=== PATIENT | male | born 1950 | race Caucasian/White ===

== ENCOUNTER 2017-11-14 18:40 | Observation (INO) | payer MEDICARE, OTHER ==
[2017-11-14] MEDS ORDERED: Ketorolac 60 MG/2 ML SDV IM ONE (18:58)
[2017-11-14] MEDS ORDERED: fentaNYL 100 MCG/2 ML SDV IVPUSH PRN (18:59)
[2017-11-14] MEDS ORDERED: Sodium Chloride 0.9% 1,000 ML IV SCH (19:00)
--- NOTE | 2017-11-14 19:07 | EDM.PDOC ---
ED HPI GENERAL MEDICAL PROBLEM - General Chief Complaint: Abdominal Pain Stated Complaint: abd pain Time Seen by Provider: 11/14/17 18:50 Source of Information: Reports: Patient History Limitations: Reports: No Limitations - History of Present Illness Onset: Sudden Location: Reports: Abdomen Quality: Reports: Sharp Severity: Severe Associated Symptoms: Denies: Fever/Chills, Nausea/Vomiting, Shortness of Breath Abdominal Pain Score (Numeric/FACES): 10 - Related Data Allergies Allergy/AdvReac Type Severity Reaction Status Date / Time Penicillins Allergy Hives Verified 11/14/17 19:28 Home Meds: Home Meds Albuterol Sulfate [Albuterol Sulfate HFA] 8.5 gm IH Q6HR PRN #1 hfa.aer.ad 06/07 [Rx] Simvastatin [Zocor] 10 mg PO DAILY 06/07/14 [History] Aspirin [Ecotrin] 81 mg PO DAILY 04/23/15 [History] Naproxen 500 mg PO BID PRN 04/23/15 [History] Cholecalciferol (Vitamin D3) [Vitamin D3] 2,000 unit PO DAILY 02/12/16 [History] Allopurinol [Zyloprim] 100 mg PO DAILY PRN 11/14/17 [History] Past Medical History Cardiovascular History: Reports: High Cholesterol Musculoskeletal History: Reports: Gout Endocrine/Metabolic History: Reports: Vitamin D Deficiency ED ROS GENERAL - Review of Systems Review Of Systems: See Below Constitutional: Denies: Fever HEENT: Reports: No Symptoms Respiratory: Reports: No Symptoms Cardiovascular: Reports: No Symptoms GI/Abdominal: Reports: Abdominal Pain. Denies: Constipation, Diarrhea : Reports: Flank Pain. Denies: Dysuria Skin: Reports: No Symptoms ED EXAM, GI/ABD - Physical Exam Exam: See Below Exam Limited By: No Limitations General Appearance: Alert, Severe Distress Ears: Normal Canal, Normal TMs Nose: Normal Inspection Throat/Mouth: Normal Inspection, Normal Oropharynx, No Airway Compromise Head: Atraumatic, Normocephalic Neck: Normal Inspection, Supple, Non-Tender, Full Range of Motion Respiratory/Chest: No Respiratory Distress, Lungs Clear, Normal Breath Sounds Cardiovascular: Regular Rate, Rhythm, No Edema GI/Abdominal Exam: Normal Bowel Sounds. No: Distended, Rigid (Right sided flank pain with radiation into the right groin and testicles.) Back Exam: Normal Inspection, CVA Tenderness (R) Extremities: Normal Inspection, Normal Range of Motion, Normal Capillary Refill Neurological: Alert, Oriented Skin Exam: Warm, Dry, Intact Course - Vital Signs Last Recorded V/S: Last Vital Signs Temp 95.4 F 11/14/17 18:41 Pulse 59 L 11/14/17 18:41 Resp 18 11/14/17 18:41 BP 137/84 11/14/17 18:41 Pulse Ox 18 L 11/14/17 18:41 - Orders/Labs/Meds Orders: Active Orders 24 hr Category Date Time Status Abdomen Pelvis wo Cont [CT] Stat Exams 11/14/17 19:18 Taken Ondansetron [Zofran] 8 mg Med 11/14/17 19:19 Active Sodium Chloride 0.9% [Normal Saline] 50 ml IV Q6H Sodium Chloride 0.9% [Normal Saline] 1,000 ml Med 11/14/17 20:24 Active IV ASDIRECTED fentaNYL [Sublimaze] Med 11/14/17 20:32 Active 50 mcg IVPUSH Q2H PRN Medication Orders Fentanyl (Sublimaze) 50 mcg IVPUSH Q2H PRN PRN Reason: Pain Last Admin: 11/14/17 21:56 Dose: 50 mcg Ondansetron HCl 8 mg/ Sodium (Chloride) 54 mls @ 100 mls/hr IV Q6H PRN PRN Reason: Nausea Last Admin: 11/14/17 19:24 Dose: 100 mls/hr Sodium Chloride (Normal Saline) 1,000 mls @ 500 mls/hr IV ASDIRECTED GUILLERMINA Last Admin: 11/14/17 21:53 Dose: 500 mls/hr Labs: Laboratory Tests 11/14/17 11/14/17 11/14/17 Range/Units 19:05 19:05 19:05 WBC 11.2 H (5.0-10.0) 10^3/uL RBC 4.56 (4.50-6.00) 10^6/uL Hgb 13.3 L (14.0-18.0) g/dL Hct 39.1 L (40.0-54.0) % MCV 85.7 (82.0-94.0) fL MCH 29.2 (27.0-32.0) pg MCHC 34.0 (33.0-38.0) g/dL RDW Coeff of Sonali 14.9 (11.0-15.0) % Plt Count 237 (150-400) 10^3/uL Neut % (Auto) 67.2 (35-85) % Lymph % (Auto) 22.8 (10-55) % [place] % (Auto) 8.2 (0-16) % Eos % (Auto) 1.5 (0-5) % Baso % (Auto) 0.3 (0-3) % Neut # (Auto) 7.50 H (1.80-7.00) 10^3/uL Lymph # (Auto) 2.54 (1.00-4.80) 10^3/uL [place] # (Auto) 0.92 H (0.00-0.80) 10^3/uL Eos # (Auto) 0.17 (0.00-0.45) 10^3/uL Baso # (Auto) 0.03 10^3/uL Sodium 141 (136-145) mEq/L Potassium 4.1 (3.5-5.0) mEq/L Chloride 104 (98-106) mEq/L Carbon Dioxide 25 (21-32) mmol/L BUN 14 (7-18) mg/dL Creatinine 1.3 (0.7-1.3) mg/dL Est Cr Clr Drug Dosing 61.35 mL/min Estimated GFR (MDRD) 55 L (>=60) mL/min Glucose 128 H D (75-99) mg/dL Calcium 8.9 (8.4-10.1) mg/dL Total Bilirubin 0.3 (0.0-1.0) mg/dL AST 15 (15-37) U/L ALT 24 (12-78) U/L Alkaline Phosphatase 69 (46-116) U/L C-Reactive Protein 2.3 H (0.2-0.8) mg/dL Total Protein 7.0 (6.4-8.2) g/dL Albumin 4.0 (3.4-5.0) g/dL Urine Color Light yellow (YELLOW) Urine Appearance Clear (CLEAR) Urine pH 5.5 (4.5-8.0) Ur Specific [place] 1.015 (1.003-1.020) Urine Protein Negative (NEGATIVE) mg/dL Urine Glucose (UA) Negative (NEGATIVE) mg/dL Urine Ketones Negative (NEGATIVE) mg/dL Urine Occult Blood Small H (NEGATIVE) Urine Nitrite Negative (NEGATIVE) Urine Bilirubin Negative (NEGATIVE) Urine Urobilinogen 0.2 (0.2-1.0) EU/dL Ur Leukocyte Esterase Negative (NEGATIVE) Urine RBC 0-5 (0-5) /HPF Urine WBC Not seen (0-5) /HPF Meds: Medications Generic Name Dose Route Start Last Admin Trade Name Freq PRN Reason Stop Dose Admin Fentanyl 50 mcg 11/14/17 20:32 11/14/17 21:56 Sublimaze IVPUSH 50 mcg Q2H PRN Administration Pain Ondansetron HCl 8 mg/ Sodium 54 mls @ 100 mls/hr 11/14/17 19:19 11/14/17 19: 24 Chloride IV 100 mls/hr Q6H PRN Administration Nausea Sodium Chloride 1,000 mls @ 500 mls/hr 11/14/17 20:24 11/14/17 21:53 Normal Saline IV 500 mls/hr ASDIRECTED GUILLERMINA Administration Discontinued Medications Generic Name Dose Route Start Last Admin Trade Name Freq PRN Reason Stop Dose Admin Fentanyl 50 mcg 11/14/17 18:59 11/14/17 19:19 Sublimaze IVPUSH 50 mcg Q4H PRN Administration Pain Fentanyl 50 mcg 11/14/17 20:00 11/14/17 20:00 Sublimaze IVPUSH 11/14/17 20:01 50 mcg ONETIME ONE Administration Sodium Chloride 1,000 mls @ 250 mls/hr 11/14/17 19:00 11/14/17 20:27 Normal Saline IV 500 mls/hr ASDIRECTED GUILLERMINA Infusion Ketorolac Tromethamine 60 mg 11/14/17 18:58 11/14/17 19:13 Toradol IM 11/14/17 18:59 60 mg ONETIME ONE Administration - Re-Assessments/Exams Free Text/Narrative Re-Assessment/Exam: 11/14/17 21:[address] Jordan. Has 3.8-4 mm stone in right ureter and smaller stones bilaterally in kidneys. Will continue to push IV fluids and medicate for pain as needed. Will admit observation and possibly discharge in the AM. Will strain urine throughout the night. Pt and son voice understanding of above. Departure - Departure Time of Disposition: 22:15 Disposition: Refer to Observation Condition: Good Clinical Impression: Bilateral kidney stones - Discharge Information *PRESCRIPTION DRUG MONITORING PROGRAM REVIEWED*: Not Applicable *COPY OF PRESCRIPTION DRUG MONITORING REPORT IN PATIENT JOHN: Not Applicable Instructions: Kidney Stones Forms: ED Department Discharge Additional Instructions: Will admit observation to Dr. Chiu's service. with plans to discharge in the AM. - Problem List & Annotations (1) Bilateral kidney stones SNOMED Code(s): 96077643 Code(s): N20.0 - CALCULUS OF KIDNEY Status: Acute Current Visit: Yes - Problem List Review Problem List Initiated/Reviewed/Updated: Yes - My Orders Last 24 Hours: My Active Orders 11/14/17 19:18 Abdomen Pelvis wo Cont [CT] Stat 11/14/17 19:19 Ondansetron [Zofran] 8 mg Sodium Chloride 0.9% [Normal Saline] 50 ml IV Q6H 11/14/17 20:24 Sodium Chloride 0.9% [Normal Saline] 1,000 ml IV ASDIRECTED 11/14/17 20:32 fentaNYL [Sublimaze] 50 mcg IVPUSH Q2H PRN - Assessment/Plan Admission H&P: Please use this note as an admission H&P Last 24 Hours: My Active Orders 11/14/17 19:18 Abdomen Pelvis wo Cont [CT] Stat 11/14/17 19:19 Ondansetron [Zofran] 8 mg Sodium Chloride 0.9% [Normal Saline] 50 ml IV Q6H 11/14/17 20:24 Sodium Chloride 0.9% [Normal Saline] 1,000 ml IV ASDIRECTED 11/14/17 20:32 fentaNYL [Sublimaze] 50 mcg IVPUSH Q2H PRN
[2017-11-14] MEDS: Ondansetron 8 MG in Sodium Chloride 0.9% 50 ML IV PRN (19:24)
[2017-11-14] MEDS ORDERED: fentaNYL 100 MCG/2 ML SDV IVPUSH ONE (20:00)
[2017-11-14] MEDS: Sodium Chloride 0.9% 1,000 ML IV SCH ×2 (21:53→23:57)
[2017-11-14] MEDS: fentaNYL 100 MCG/2 ML SDV IVPUSH PRN (21:56)
[2017-11-14] MEDS ORDERED: Enoxaparin 30 MG/0.3 ML Syringe SUBCUT SCH ×2 (22:26→22:45)
[2017-11-14] MEDS ORDERED: Tamsulosin 0.4 MG Cap.ER PO SCH (22:30)
[2017-11-15] MEDS: Ondansetron 8 MG in Sodium Chloride 0.9% 50 ML IV PRN (01:00)
[2017-11-15] MEDS: fentaNYL 100 MCG/2 ML SDV IVPUSH PRN (01:05)
[2017-11-15] MEDS: Sodium Chloride 0.9% 1,000 ML IV SCH ×3 (02:21→06:42)
--- NOTE | 2017-11-15 07:39 | PCM.DCSUM1 ---
Discharge Summary - Hospital Course HPI Initial Comments: Pt was admitted observation for pain control with right sided flank pain from kidney stones. Has bilateral kidney stones on CT scan. Pain was unable to be controlled in the ER. Was very nauseated and was given Zofran IV which did help the nausea. Brief History: Did require some additional pain meds during the night. Pain currently is 1-2/10 at this time. Nausea has been resolved. Has never had kidney stone in the past. Diagnosis: Stroke: No - Discharge Data Discharge Date: 11/15/17 Discharge Disposition: Home, Self-Care 01 Condition: Good - Discharge Diagnosis/Problem(s) (1) Bilateral kidney stones SNOMED Code(s): 37654331 ICD Code: N20.0 - CALCULUS OF KIDNEY Status: Acute Priority: High Current Visit: Yes - Patient Summary/Data Complications: None Hospital Course: Pt was admitted and was given pain meds during the night with IV fluids. He has urinated and urine was strained but no stone noted at this point. He ranks his pain 1-2/10 and has slept on and off. No further nausea noted. - Patient Instructions Diet: Regular Diet as Tolerated Activity: As Tolerated Driving: May Drive Today - Discharge Plan *PRESCRIPTION DRUG MONITORING PROGRAM REVIEWED*: Not Applicable *COPY OF PRESCRIPTION DRUG MONITORING REPORT IN PATIENT JOHN: Not Applicable Home Medications: Home Meds Albuterol Sulfate [Albuterol Sulfate HFA] 8.5 gm IH Q6HR PRN #1 hfa.aer.ad 06/07 [Rx] Simvastatin [Zocor] 10 mg PO DAILY 06/07/14 [History] Aspirin [Ecotrin] 81 mg PO DAILY 04/23/15 [History] Naproxen 500 mg PO BID PRN 04/23/15 [History] Cholecalciferol (Vitamin D3) [Vitamin D3] 2,000 unit PO DAILY 02/12/16 [History] Allopurinol [Zyloprim] 100 mg PO DAILY PRN 11/14/17 [History] Patient Handouts: Kidney Stones Forms: ED Department Discharge Referrals: Yolanda Raya PA-C [Primary Care Provider] - - Discharge Summary/Plan Comment DC Time >30 min.: Yes Discharge Summary/Plan Comment: Appt with Dr. Irwin as CT shows bilateral kidney stones present Will continue on flomax for the next month tylenol or advil as needed for pain Push fluids 80-100 ml of water daily - General Info Date of Service: 11/15/17 Admission Dx/Problem (Free Text: bilateral kidney stones. Functional Status: Reports: Pain Controlled - Review of Systems General: Reports: No Symptoms HEENT: Reports: No Symptoms Pulmonary: Reports: No Symptoms Cardiovascular: Reports: No Symptoms Gastrointestinal: Reports: Abdominal Pain Genitourinary: Reports: Flank Pain. Denies: Dysuria, Frequency, Burning, Pain Skin: Reports: No Symptoms Neurological: Reports: No Symptoms - Patient Data Vitals - Most Recent: Last Vital Signs Temp 99.7 F 11/15/17 04:00 Pulse 63 11/15/17 04:00 Resp 18 11/15/17 04:00 BP 124/49 L 11/15/17 04:00 Pulse Ox 96 11/15/17 04:00 Weight - Most Recent: 209 lb I&O - Last 24 hours: Intake & Output 11/14/17 11/15/17 11/15/17 22:59 06:59 14:59 Intake Total 263 4350 Output Total 625 Balance 263 3725 Lab Results - Last 24 hrs: Laboratory Results - last 24 hr 11/14/17 11/14/17 11/14/17 Range/Units 19:05 19:05 19:05 WBC 11.2 H (5.0-10.0) 10^3/uL RBC 4.56 (4.50-6.00) 10^6/uL Hgb 13.3 L (14.0-18.0) g/dL Hct 39.1 L (40.0-54.0) % MCV 85.7 (82.0-94.0) fL MCH 29.2 (27.0-32.0) pg MCHC 34.0 (33.0-38.0) g/dL RDW Coeff of Sonali 14.9 (11.0-15.0) % Plt Count 237 (150-400) 10^3/uL Neut % (Auto) 67.2 (35-85) % Lymph % (Auto) 22.8 (10-55) % [place] % (Auto) 8.2 (0-16) % Eos % (Auto) 1.5 (0-5) % Baso % (Auto) 0.3 (0-3) % Neut # (Auto) 7.50 H (1.80-7.00) 10^3/uL Lymph # (Auto) 2.54 (1.00-4.80) 10^3/uL [place] # (Auto) 0.92 H (0.00-0.80) 10^3/uL Eos # (Auto) 0.17 (0.00-0.45) 10^3/uL Baso # (Auto) 0.03 10^3/uL Sodium 141 (136-145) mEq/L Potassium 4.1 (3.5-5.0) mEq/L Chloride 104 (98-106) mEq/L Carbon Dioxide 25 (21-32) mmol/L BUN 14 (7-18) mg/dL Creatinine 1.3 (0.7-1.3) mg/dL Est Cr Clr Drug Dosing 61.35 mL/min Estimated GFR (MDRD) 55 L (>=60) mL/min Glucose 128 H D (75-99) mg/dL Calcium 8.9 (8.4-10.1) mg/dL Total Bilirubin 0.3 (0.0-1.0) mg/dL AST 15 (15-37) U/L ALT 24 (12-78) U/L Alkaline Phosphatase 69 (46-116) U/L C-Reactive Protein 2.3 H (0.2-0.8) mg/dL Total Protein 7.0 (6.4-8.2) g/dL Albumin 4.0 (3.4-5.0) g/dL Urine Color Light yellow (YELLOW) Urine Appearance Clear (CLEAR) Urine pH 5.5 (4.5-8.0) Ur Specific [place] 1.015 (1.003-1.020) Urine Protein Negative (NEGATIVE) mg/dL Urine Glucose (UA) Negative (NEGATIVE) mg/dL Urine Ketones Negative (NEGATIVE) mg/dL Urine Occult Blood Small H (NEGATIVE) Urine Nitrite Negative (NEGATIVE) Urine Bilirubin Negative (NEGATIVE) Urine Urobilinogen 0.2 (0.2-1.0) EU/dL Ur Leukocyte Esterase Negative (NEGATIVE) Urine RBC 0-5 (0-5) /HPF Urine WBC Not seen (0-5) /HPF Med Orders - Current: Current Medications Enoxaparin Sodium (Lovenox) 30 mg SUBCUT BEDTIME GUILLERMINA Last Admin: 11/14/17 22:42 Dose: 30 mg Fentanyl (Sublimaze) 50 mcg IVPUSH Q2H PRN PRN Reason: Pain Last Admin: 11/15/17 01:05 Dose: 50 mcg Ondansetron HCl 8 mg/ Sodium (Chloride) 54 mls @ 100 mls/hr IV Q6H PRN PRN Reason: Nausea Last Admin: 11/15/17 01:00 Dose: 100 mls/hr Sodium Chloride (Normal Saline) 1,000 mls @ 500 mls/hr IV ASDIRECTED [facility] Last Admin: 11/15/17 06:42 Dose: 500 mls/hr Tamsulosin HCl (Flomax) 0.4 mg PO BEDTIME [facility] Last Admin: 11/14/17 22:40 Dose: 0.4 mg Discontinued Medications Fentanyl (Sublimaze) 50 mcg IVPUSH Q4H PRN PRN Reason: Pain Last Admin: 11/14/17 19:19 Dose: 50 mcg Fentanyl (Sublimaze) 50 mcg IVPUSH ONETIME ONE Stop: 11/14/17 20:01 Last Admin: 11/14/17 20:00 Dose: 50 mcg Sodium Chloride (Normal Saline) 1,000 mls @ 250 mls/hr IV ASDIRECTED [facility] Last Infusion: 11/14/17 20:27 Dose: 500 mls/hr Ketorolac Tromethamine (Toradol) 60 mg IM ONETIME ONE Stop: 11/14/17 18:59 Last Admin: 11/14/17 19:13 Dose: 60 mg - Exam General: Reports: Alert, Oriented Lungs: Reports: Clear to Auscultation, Normal Respiratory Effort Cardiovascular: Reports: Regular Rate, Regular Rhythm GI/Abdominal Exam: Normal Bowel Sounds, Soft, Non-Tender, No Organomegaly, Other (No CVA tenderness noted.) Extremities: No Pedal Edema, Normal Capillary Refill Skin: Reports: Warm, Dry, Intact Psy/Mental Status: Reports: Alert, Normal Affect
[2017-11-15 08:24] VITALS: BP 115/61
== END 2017-11-15 08:40 | disposition home or self-care (01) ==
LOC: CC.ED 18:40 → UNDOADMOB 22:00 → CC.ED 22:00 → CC.MS 22:00
PROVIDERS: ADMIT Physician Assistant Medical; ATTEND Family Medicine
DX: N13.2 Hydronephrosis with renal and ureteral calculous obstruction (principal); K76.0 Fatty (change of) liver, not elsewhere classified; E78.00 Pure hypercholesterolemia, unspecified; M10.9 Gout, unspecified; E55.9 Vitamin D deficiency, unspecified; Z79.82 Long term (current) use of aspirin; Z79.899 Other long term (current) drug therapy; Z88.0 Allergy status to penicillin
CPT/HCPCS: 36415; 74176; 80053; 81001; 85025; 86140; 96361; 96365; 96366; 96368; 96372; 96375; 96376; 99285; A9270-GY; J1650; J1885; J2405; J3010; J7030; J7050

== ENCOUNTER → 2018-08-02 | Day surgery (SDC) | payer MEDICARE, OTHER ==
[~2018-08-02] MED LIST: Lactated Ringers 1,000 ML IV SCH; Propofol 200 MG/20 ML SDV IV ONE
[2018-08-02 11:18] VITALS: BP 136/69
--- NOTE | 2018-08-05 09:10 | OR ---
DATE OF OPERATION: 08/02/2018 PREOPERATIVE DIAGNOSIS: FOLLOWUP POLYPS. POSTOPERATIVE DIAGNOSIS: FOLLOWUP POLYPS. SURGEON: Donny Chiu MD PROCEDURE: COLONOSCOPY WITH FORCEPS POLYP REMOVAL X2. 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 COMPLICATIONS: None. SPECIMEN: Rectal polyps x2, both sessile, less than 3 mm. FINDINGS: 1. Full-length colonoscopy. 2. Mild sigmoid diverticulosis. 3. Two small sessile polyps, 3 mm at rectal vault. RECOMMENDATIONS: Followup colonoscopy in 5 years. INDICATIONS: The patient was seen for physical. He was sent for a followup on polyps for repeat colonoscopy. DESCRIPTION OF PROCEDURE: The patient was prepped and draped, placed in the left lateral decubitus position. Lubricated Olympus colonoscope was inserted and easily advanced to the cecum. Direct visualization of the ileocecal valve and appendiceal orifice was accomplished. The bowel prep was adequate. Upon withdrawal of the scope, right transverse and descending colon were all completely benign. The patient does have a few scattered diverticula in the sigmoid colon without inflammatory change. No other worrisome vascular abnormalities, bleeding sites, or signs of colitis were seen. The patient had no polyps or lesions in the sigmoid or rectosigmoid junction. Rectal vault had 2 small sessile polyps, both flat, removed with forceps biopsy x1 each in their entirety. Resolution of bleeding was spontaneous. Retroflexion of the scope in the rectum showed no perianal lesions. Air was suctioned. Scope was removed without complication. FRANCIS/SABINA /[id number]
== END ==
LOC: CC.SDS 08:57
PROVIDERS: ATTEND Family Medicine
DX: Z12.11 Encounter for screening for malignant neoplasm of colon (principal); K62.1 Rectal polyp; K57.30 Diverticulosis of large intestine without perforation or abscess without bleeding; E78.5 Hyperlipidemia, unspecified; I25.10 Atherosclerotic heart disease of native coronary artery without angina pectoris; I65.29 Occlusion and stenosis of unspecified carotid artery; E55.9 Vitamin D deficiency, unspecified; M19.90 Unspecified osteoarthritis, unspecified site; M10.9 Gout, unspecified; F17.210 Nicotine dependence, cigarettes, uncomplicated; Z88.0 Allergy status to penicillin; Z79.82 Long term (current) use of aspirin; Z79.899 Other long term (current) drug therapy
CPT/HCPCS: J2704; J7120

== ENCOUNTER 2018-09-04 14:05 | Emergency (ER) | payer MEDICARE, OTHER ==
[2018-09-04] MEDS ORDERED: Acetaminophen/HYDROcodone 325-5 MG Tab PO ONE (14:06)
[2018-09-04] MEDS ORDERED: Ondansetron 4 MG/2 ML SDV ONE (14:15)
[2018-09-04] MEDS ORDERED: Ondansetron 4 MG/2 ML SDV IVPUSH STA (14:30)
[2018-09-04] MEDS ORDERED: Ketorolac 30 MG/ML SDV IVPUSH ONE (14:40)
[2018-09-04] MEDS ORDERED: Lactated Ringers 1,000 ML IV SCH (14:45)
[2018-09-04] MEDS ORDERED: fentaNYL 100 MCG/2 ML SDV IVPUSH PRN (14:47)
[2018-09-04 14:53] VITALS: BP 165/96; PULSE 67
[2018-09-04] MEDS ORDERED: Take Home: Acetaminophen/HYDROcodone 325-5 MG, 2 Tab Pack PO ONE (17:02)
--- NOTE | 2018-09-04 17:02 | EDM.PDOC ---
ED HPI GENERAL MEDICAL PROBLEM - General Chief Complaint: General Stated Complaint: flank pain Time Seen by Provider: 09/04/18 14:10 Source of Information: Reports: Patient History Limitations: Reports: No Limitations - History of Present Illness INITIAL COMMENTS - FREE TEXT/NARRATIVE: Patient presents to ER with complaints of flank pain. States started to get sick last evening with nausea, thought he possibly had "bad food and had food poisoning". He has been nauseated today, vomited several times. Now is noting left flank pain that radiates around to the groin. He has a history of kidney stones, feels similar. Unable to find a position of comfort. No fevers. No chest pain, shortness of breath. Onset: Gradual Duration: Hour(s):, Getting Worse Location: Reports: Abdomen, Back Quality: Reports: Sharp, Stabbing Severity: Severe Improves with: Reports: None Associated Symptoms: Reports: Nausea/Vomiting. Denies: Confusion, Chest Pain, Fever/Chills, Loss of Appetite, Shortness of Breath, Weakness Left Flank Pain Score (Numeric/FACES): 9 - Related Data Allergies Allergy/AdvReac Type Severity Reaction Status Date / Time Penicillins Allergy Hives Verified 08/16/18 17:08 Home Meds: Home Meds Simvastatin [Zocor] 10 mg PO DAILY 06/07/14 [History] Aspirin [Ecotrin EC] 81 mg PO DAILY 04/23/15 [History] Cholecalciferol (Vitamin D3) [Vitamin D3] 2,000 unit PO DAILY 02/12/16 [History] Allopurinol [Zyloprim] 100 mg PO DAILY PRN 11/14/17 [History] Meloxicam 15 mg PO DAILY 07/30/18 [History] Nicotine [Habitrol] 1 patch TOP DAILY 07/30/18 [History] Naproxen 500 mg PO DAILY PRN 08/16/18 [History] Past Medical History Cardiovascular History: Reports: High Cholesterol Genitourinary History: Reports: Renal Calculus Musculoskeletal History: Reports: Gout Endocrine/Metabolic History: Reports: Vitamin D Deficiency Social & Family History - Tobacco Use Smoking Status *Q: Current Every Day Smoker Years of Tobacco use: 50 Packs/Tins Daily: 1 ED ROS GENERAL - Review of Systems Review Of Systems: See Below Constitutional: Reports: Malaise. Denies: Fever, Chills, Weakness, Fatigue, Decreased Appetite HEENT: Reports: No Symptoms Respiratory: Denies: Shortness of Breath, Cough Cardiovascular: Denies: Chest Pain, Edema, Lightheadedness Endocrine: Reports: Fatigue GI/Abdominal: Reports: Abdominal Pain, Nausea, Vomiting : Reports: Flank Pain. Denies: Hematuria Musculoskeletal: Reports: No Symptoms Skin: Reports: No Symptoms ED EXAM, GENERAL - Physical Exam Exam: See Below Exam Limited By: No Limitations General Appearance: Alert, WD/WN, Moderate Distress Ears: Normal External Exam, Normal TMs Nose: Normal Inspection, Normal Mucosa, No Blood Throat/Mouth: Normal Inspection, Normal Oropharynx Head: Normocephalic Neck: Normal Inspection, Supple, Non-Tender Respiratory/Chest: No Respiratory Distress, Lungs Clear, Normal Breath Sounds Cardiovascular: Regular Rate, Rhythm GI/Abdominal: Normal Bowel Sounds, Soft, Tender (LLQ discomfort, Left flank discomfort) Extremities: Normal Inspection, No Pedal Edema Skin Exam: Warm, Dry Course - Vital Signs Last Recorded V/S: Last Vital Signs Temp 97 F 09/04/18 14:21 Pulse 67 09/04/18 14:21 Resp 18 09/04/18 14:21 BP 165/96 H 09/04/18 14:21 Pulse Ox 97 09/04/18 14:21 - Orders/Labs/Meds Orders: Active Orders 24 hr Category Date Time Status Abdomen Pelvis wo Cont [CT] Routine Exams 09/04/18 Taken Labs: Laboratory Tests 09/04/18 09/04/18 09/04/18 Range/Units 14:31 14:31 17:05 WBC 12.1 H (5.0-10.0) 10^3/uL RBC 4.71 (4.50-6.00) 10^6/uL Hgb 13.6 L (14.0-18.0) g/dL Hct 40.1 (40.0-54.0) % MCV 85.1 (82.0-94.0) fL MCH 28.9 (27.0-32.0) pg MCHC 33.9 (33.0-38.0) g/dL RDW Coeff of Sonali 15.6 H (11.0-15.0) % Plt Count 254 (150-400) 10^3/uL Neut % (Auto) 80.1 (35-85) % Lymph % (Auto) 13.6 (10-55) % [place] % (Auto) 5.2 (0-16) % Eos % (Auto) 0.9 (0-5) % Baso % (Auto) 0.2 (0-3) % Neut # (Auto) 9.68 H (1.80-7.00) 10^3/uL Lymph # (Auto) 1.65 (1.00-4.80) 10^3/uL [place] # (Auto) 0.63 (0.00-0.80) 10^3/uL Eos # (Auto) 0.11 (0.00-0.45) 10^3/uL Baso # (Auto) 0.03 10^3/uL Sodium 135 L (136-145) mEq/L Potassium 4.0 (3.5-5.0) mEq/L Chloride 102 (98-106) mEq/L Carbon Dioxide 24 (21-32) mmol/L BUN 22 H (7-18) mg/dL Creatinine 1.6 H (0.7-1.3) mg/dL Est Cr Clr Drug Dosing 49.17 mL/min Estimated GFR (MDRD) 43 L (>=60) mL/min Glucose 123 H D (75-99) mg/dL Calcium 9.3 (8.4-10.1) mg/dL Total Bilirubin 0.5 (0.0-1.0) mg/dL AST 15 (15-37) U/L ALT 25 (12-78) U/L Alkaline Phosphatase 68 (46-116) U/L C-Reactive Protein 1.1 H (0.2-0.8) mg/dL Total Protein 7.2 (6.4-8.2) g/dL Albumin 3.9 (3.4-5.0) g/dL Urine Color Yellow (YELLOW) Urine Appearance Clear (CLEAR) Urine pH 5.5 (4.5-8.0) Ur Specific [place] 1.025 H (1.003-1.020) Urine Protein Negative (NEGATIVE) mg/dL Urine Glucose (UA) Negative (NEGATIVE) mg/dL Urine Ketones Trace H (NEGATIVE) mg/dL Urine Occult Blood Moderate H (NEGATIVE) Urine Nitrite Negative (NEGATIVE) Urine Bilirubin Negative (NEGATIVE) Urine Urobilinogen 0.2 (0.2-1.0) EU/dL Ur Leukocyte Esterase Negative (NEGATIVE) Urine RBC 10-20 H (0-5) /HPF Urine WBC Not seen (0-5) /HPF Meds: Medications Discontinued Medications Generic Name Dose Route Start Last Admin Trade Name Maisha PRN Reason Stop Dose Admin Hydrocodone Bitart/Acetaminophen 2 packet 09/04/18 17:02 09/04/18 18:21 Take Home: Acetaminophen/Hydrocod, 2 Tab Pack PO 09/04/18 17:03 2 packet ONETIME ONE Administration Fentanyl 50 mcg 09/04/18 14:47 Sublimaze IVPUSH Q2H PRN Pain Lactated Ringer's 1,000 mls @ 250 mls/hr 09/04/18 14:45 09/04/18 14:50 Ringers, Lactated IV 250 mls/hr ASDIRECTED GUILLERMINA Administration Ketorolac Tromethamine 30 mg 09/04/18 14:40 09/04/18 14:50 Toradol IVPUSH 09/04/18 14:41 30 mg ONETIME ONE Administration Ondansetron HCl 4 mg 09/04/18 14:30 09/04/18 14:30 Zofran IVPUSH 09/04/18 14:31 4 mg STAT STA Administration Ondansetron HCl Confirm 09/04/18 14:15 09/04/18 14:57 Zofran Administered 09/04/18 14:16 Not Given Dose 4 mg .ROUTE .STK-MED ONE Tamsulosin HCl 0.4 mg 09/04/18 17:21 09/04/18 17:35 Flomax PO 09/04/18 17:22 0.4 mg ONETIME ONE Administration - Re-Assessments/Exams Free Text/Narrative Re-Assessment/Exam: 09/04/18 Labs noted, essentially negative. CT scan of abdomen done, shows 5 mm stone at the proximal ureteral junction, obstructive. Mild to moderate hydronephrosis per radiology. Patient has been given IV Toradol, IV fluids and has had significant improvement of his pain. Was able to eat supper and tolerated well. Discussed admission but patient declines, would like to push fluids, take oral pain meds at home. Will have patient strain urine. Take Flomax. Follow up with PCP in next 5-7 days. Departure - Departure Time of Disposition: 16:59 Disposition: Home, Self-Care 01 Condition: Good, Fair Clinical Impression: Nephrolithiasis - Discharge Information *PRESCRIPTION DRUG MONITORING PROGRAM REVIEWED*: No *COPY OF PRESCRIPTION DRUG MONITORING REPORT IN PATIENT JOHN: No Referrals: PCP,None [Primary Care Provider] - Forms: ED Department Discharge Additional Instructions: 1. Push fluids 2. Flomax 0.4 mg daily 3. Strain urine 4. [place] 5/325 1-2 tabs every 6 hours as needed for pain 5. Follow up with primary care provider in 5-7 days if have not passed the stone 6. Call with any questions or concerns - My Orders Last 24 Hours: My Active Orders 09/04/18 Abdomen Pelvis wo Cont [CT] Routine - Assessment/Plan Last 24 Hours: My Active Orders 09/04/18 Abdomen Pelvis wo Cont [CT] Routine
[2018-09-04] MEDS ORDERED: Tamsulosin 0.4 MG Cap.ER PO ONE (17:21)
== END 2018-09-04 18:30 | disposition home or self-care (01) ==
LOC: CC.ED 14:05
DX: N13.2 Hydronephrosis with renal and ureteral calculous obstruction (principal); E78.00 Pure hypercholesterolemia, unspecified; Z88.0 Allergy status to penicillin; Z79.82 Long term (current) use of aspirin; Z79.899 Other long term (current) drug therapy
CPT/HCPCS: 36415; 74176; 80053; 81001; 85025; 86140; 96361; 96374; 96375; 99284; A9270; J1885; J2405; J7120

== ENCOUNTER 2018-11-05 20:04 | Emergency (ER) | payer MEDICARE, OTHER ==
[2018-11-05 20:09] VITALS: BP 135/68; PULSE 73
[2018-11-05] MEDS ORDERED: Lidocaine 1% 30 ML SDV INJECT STA (20:12)
[2018-11-05] MEDS ORDERED: Lidocaine 1% 20 ML MDV INJECT ONE (20:15)
[2018-11-05] MEDS ORDERED: Bacitracin/Neomycin/Polymyxin B Oint 0.9 GM U/D Packet TOP ONE (20:53)
--- NOTE | 2018-11-05 21:49 | EDM.PDOC ---
ED HPI GENERAL MEDICAL PROBLEM - General Chief Complaint: Laceration Stated Complaint: LACERATION TO R)HAND Time Seen by Provider: 11/05/18 20:11 Source of Information: Reports: Patient History Limitations: Reports: No Limitations - History of Present Illness INITIAL COMMENTS - FREE TEXT/NARRATIVE: Manuel is a 68 yo male who presents to the ED with concerns of a cut to his left hand. He states he was in his [employer] and was pulling some zaynab wire and it got caught. States his hand slipped thru it and one of the barbed caught the inside of his hand. He isn't sure on Tetanus status. Is currently taking antibiotics (doxycyclline) for an upper respiratory infection. States he grabbed some grass and stuck it on the cut to get the bleeding to stop. Onset: Today Location: Reports: Upper Extremity, Left Right Hand Pain Score (Numeric/FACES): 2 - Related Data Allergies Allergy/AdvReac Type Severity Reaction Status Date / Time Penicillins Allergy Hives Verified 11/05/18 20:09 Home Meds: Home Meds Simvastatin [Zocor] 10 mg PO DAILY 06/07/14 [History] Aspirin [Ecotrin EC] 81 mg PO DAILY 04/23/15 [History] Cholecalciferol (Vitamin D3) [Vitamin D3] 2,000 unit PO DAILY 02/12/16 [History] Allopurinol [Zyloprim] 100 mg PO DAILY PRN 11/14/17 [History] Meloxicam 15 mg PO DAILY 07/30/18 [History] Nicotine [Habitrol] 1 patch TOP DAILY 07/30/18 [History] Naproxen 500 mg PO DAILY PRN 08/16/18 [History] Past Medical History Cardiovascular History: Reports: High Cholesterol Genitourinary History: Reports: Renal Calculus Musculoskeletal History: Reports: Gout Endocrine/Metabolic History: Reports: Vitamin D Deficiency ED ROS GENERAL - Review of Systems Review Of Systems: ROS reveals no pertinent complaints other than HPI. ED EXAM, SKIN/RASH Exam: See Below Exam Limited By: No Limitations General Appearance: Alert, No Apparent Distress Extremities: Normal Range of Motion, Normal Capillary Refill, Other (Full flexion and extension of thumb. Strength appropriate. All distal digits intact. ) Neurological: No Motor/Sensory Deficits Skin: Wound/Incision (2cm X 1cm flap laceration to palm of left hand just distal to thumb. Mild bleeding noted. ) ED SKIN PROCEDURES - Laceration/Wound Repair Left Hand Appearance: Superficial, Irregular, Mildly Contaminated Distal NVT: Neuro & Vascular Intact, No Tendon Injury Anesthetic Type: Local Local Anesthesia - Lidocaine (Xylocaine): 1% Plain Local Anesthetic Volume: 4cc Skin Prep: Chlorhexidine (Hibiciens) Exploration/Debridement/Repair: Wound Explored, In a Bloodless Field, Explored to Base, No Foreign Material Found, Multiple Flaps Aligned Closed with: Sutures Lac/Wound length In cm: 3 Suture Size: 4-0 # of Sutures: 6 Suture Type: Prolene, Interrupted Tetanus Status Addressed: Yes Complications: No Course - Vital Signs Last Recorded V/S: Last Vital Signs Temp 97.6 F 11/05/18 20:05 Pulse 73 11/05/18 20:05 Resp 20 11/05/18 20:05 BP 135/68 11/05/18 20:05 Pulse Ox 97 11/05/18 20:05 - Orders/Labs/Meds Meds: Medications Discontinued Medications Generic Name Dose Route Start Last Admin Trade Name Maisha PRN Reason Stop Dose Admin Lidocaine HCl 20 ml 11/05/18 20:15 11/05/18 20:54 Xylocaine 1% INJECT 11/05/18 20:16 20 ml ONETIME ONE Administration Neomycin/Polymyxin/Bacitracin 1 each 11/05/18 20:53 11/05/18 20:58 Triple Antibiotic Oint TOP 11/05/18 20:54 1 each ONETIME ONE Administration Departure - Departure Time of Disposition: 20:59 Disposition: Home, Self-Care 01 Clinical Impression: Laceration of hand without complication, excluding fingers Qualifiers: Encounter type: initial encounter Laterality: left Qualified Code(s): S61.412A - Laceration without foreign body of left hand, initial encounter - Discharge Information Instructions: Laceration Care, Adult, [id number], Stitches, Amor, or Adhesive Wound Closure, [id number] Forms: ED Department Discharge Additional Instructions: 1) Sutures out in 10-14 days 2) Keep clean and dry for 48 hours 3) May apply Neosporin to wound twice a day 4) Do not soak in tub or sink 5) Watch for signs of infection, increased redness, swelling, warmth, drainage, etc... If any concerns at all, recommend reevaluation 6) Wound care hand out given 7) Recommend taking Tylenol with ibuprofen for discomfort, as directed on bottles. - Problem List & Annotations (1) Laceration of hand without complication, excluding fingers SNOMED Code(s): 552387997 Code(s): S61.419A - LACERATION WITHOUT FOREIGN BODY OF UNSP HAND, INIT ENCNTR Status: Acute - Assessment/Plan Plan: Wound closed without complication. Discussed signs and symptoms to watch for. Please see discharge instructions.
== END 2018-11-05 20:59 | disposition home or self-care (01) ==
LOC: CC.ED 20:04
DX: S61.412A Laceration without foreign body of left hand, initial encounter (principal); E78.00 Pure hypercholesterolemia, unspecified; M10.9 Gout, unspecified; Z88.0 Allergy status to penicillin; Z79.82 Long term (current) use of aspirin; Z79.899 Other long term (current) drug therapy; W23.0XXA Caught, crushed, jammed, or pinched between moving objects, initial encounter
CPT/HCPCS: 12001; 12002; 99282; J2001

== ENCOUNTER 2023-08-25 19:49 | Emergency (ER) | payer MEDICARE ==
[2023-08-25] MEDS: Take Home: Cephalexin 250 MG Cap, 4 Cap Pack PO ONE (20:40)
[2023-08-25] MEDS: Take Home: predniSONE 20 MG, 2 Tab Pack PO ONE (20:40)
[2023-08-25 21:01] VITALS: BP 132/64; PULSE 68
== END 2023-08-25 20:50 | disposition home or self-care (01) ==
LOC: CC.ED 19:49
DX: L03.114 Cellulitis of left upper limb (principal); M70.22 Olecranon bursitis, left elbow; F17.210 Nicotine dependence, cigarettes, uncomplicated; Z79.899 Other long term (current) drug therapy; Z88.0 Allergy status to penicillin
CPT/HCPCS: 99283; 99284; A9270-GY; J7512

== ENCOUNTER 2024-11-14 16:35 | Observation (INO) | payer OTHER, MEDICARE ==
[2024-11-14] MEDS ORDERED: Sodium Chloride 0.9% 10 ML Syringe FLUSH PRN (16:46)
[2024-11-14 17:03] LABS: BASOPHILS ABSOLUTE AUTO 0.04 10^3/uL (0.00-0.50); BASOPHILS PERCENT AUTO 0.4 % (0-1); EOSINOPHILS ABSOLUTE AUTO 0.27 10^3/uL (0.00-1.50); EOSINOPHILS PERCENT AUTO 2.7 % (0-6); IMMATURE GRAN ABSOLUTE AUTO 0.03 10^3/uL (0.00-0.49); IMMATURE GRAN PERCENT AUTO 0.3 % (0.0-4.9); LYMPHOCYTES ABSOLUTE AUTO 2.94 10^3/uL (0.60-5.00); LYMPHOCYTES PERCENT AUTO 29.9 % (24-44); MONOCYTES ABSOLUTE AUTO 0.85 10^3/uL (0.00-1.50); MONOCYTES PERCENT AUTO 8.7 % (0-10); NEUTROPHILS ABSOLUTE AUTO 5.69 x10^3/uL (1.80-8.00); NEUTROPHILS PERCENT AUTO 58.0 % (41-71); PLATELET COUNT,PLT 243 10^3/uL (150-400); RED BLOOD CELL COUNT 5.38 x10^6/uL (4.50-6.00); WHITE BLOOD CELL COUNT,WBC 9.8 10^3/uL (4.0-11.0)
[2024-11-14 17:16] LABS: ALANINE AMINOTRANSFERASE,ALT 25 U/L (12-78); ASPARTATE AMNIOTRANSFERASE,AST 19 U/L (15-37); BILIRUBIN TOTAL 0.3 mg/dL (0.0-1.0); BLOOD UREA NITROGEN,BUN 24 mg/dL (7-18); CARBON DIOXIDE,CO2 28 mmol/L (21-32); CHLORIDE,CL 103 mEq/L (98-106); CREATININE 1.6 mg/dL (0.7-1.3); GLUCOSE RANDOM 114 mg/dL (75-99); POTASSIUM,K 4.1 mEq/L (3.5-5.0); PROTEIN TOTAL,TP 7.4 g/dL (6.4-8.2); SODIUM,NA 139 mEq/L (136-145)
[2024-11-14 17:17] LABS: ESTIMATED GFR 45 mL/min (>=60); ETHANOL BLOOD MEDICAL < 3 mg/dL (0-3)
[2024-11-14] MEDS ORDERED: Albuterol 0.083% 2.5 MG/3 ML Neb Soln NEB PRN (19:30)
[2024-11-14] MEDS ORDERED: Ondansetron 4 MG/2 ML SDV IV PRN (20:36)
[2024-11-14] MEDS ORDERED: Ondansetron 4 MG Tab.DIS PO PRN (20:36)
[2024-11-15] MEDS: Acetaminophen/HYDROcodone 325-5 MG Tab PO PRN (03:29)
[2024-11-15 07:47] LABS: BASOPHILS ABSOLUTE AUTO 0.05 10^3/uL (0.00-0.50); BASOPHILS PERCENT AUTO 0.5 % (0-1); EOSINOPHILS ABSOLUTE AUTO 0.35 10^3/uL (0.00-1.50); EOSINOPHILS PERCENT AUTO 3.5 % (0-6); IMMATURE GRAN ABSOLUTE AUTO 0.03 10^3/uL (0.00-0.49); IMMATURE GRAN PERCENT AUTO 0.3 % (0.0-4.9); LYMPHOCYTES ABSOLUTE AUTO 2.79 10^3/uL (0.60-5.00); LYMPHOCYTES PERCENT AUTO 28.0 % (24-44); MONOCYTES ABSOLUTE AUTO 1.03 10^3/uL (0.00-1.50); MONOCYTES PERCENT AUTO 10.4 % (0-10); NEUTROPHILS ABSOLUTE AUTO 5.70 x10^3/uL (1.80-8.00); NEUTROPHILS PERCENT AUTO 57.3 % (41-71); PLATELET COUNT,PLT 233 10^3/uL (150-400); RED BLOOD CELL COUNT 5.18 x10^6/uL (4.50-6.00); WHITE BLOOD CELL COUNT,WBC 10.0 10^3/uL (4.0-11.0)
[2024-11-15 07:55] LABS: ALANINE AMINOTRANSFERASE,ALT 24.0 U/L (12-78); ASPARTATE AMNIOTRANSFERASE,AST 16.0 U/L (15-37); BILIRUBIN TOTAL 0.4 mg/dL (0.0-1.0); BLOOD UREA NITROGEN,BUN 18.0 mg/dL (7-18); CARBON DIOXIDE,CO2 28.0 mmol/L (21-32); CHLORIDE,CL 105.0 mEq/L (98-106); CREATININE 1.6 mg/dL (0.7-1.3); EST CRCL DRUG DOSING (CG) 46.47 mL/min; GLUCOSE RANDOM 105.0 mg/dL (75-99); POTASSIUM,K 4.2 mEq/L (3.5-5.0); PROTEIN TOTAL,TP 6.9 g/dL (6.4-8.2); SODIUM,NA 140.0 mEq/L (136-145)
[2024-11-15 07:56] LABS: ESTIMATED GFR 45.0 mL/min (>=60)
[2024-11-15 08:53] VITALS: BP 141/77; PULSE 65
== END 2024-11-15 09:20 | disposition home or self-care (01) ==
LOC: CC.ED 16:35 → UNDOADMOB 19:20 → CC.MS 19:20 → UNDODISOB 11-15 09:20
PROVIDERS: ADMIT Nurse Practitioner Family; ATTEND Nurse Practitioner Family
DX: S09.90XA Unspecified injury of head, initial encounter (principal); S00.81XA Abrasion of other part of head, initial encounter; M54.2 Cervicalgia; Z88.0 Allergy status to penicillin; Z79.899 Other long term (current) drug therapy; V89.2XXA Person injured in unspecified motor-vehicle accident, traffic, initial encounter
CPT/HCPCS: 36415; 70450; 71045; 72125; 80053; 80307; 83735; 85025; 86140; A9270; J2270; J7512